=== PATIENT | male | born 1940 | race Caucasian/White ===

== ENCOUNTER → 2024-06-29 | Outpatient (CLI) | payer MEDICARE, BC, SELFPAY ==
[2024-06-29 17:21] LABS: Amphetamine/Methamp Scrn,U Negative (Negative); Barbiturate Screen,Urine Negative (Negative); Benzodiazepines Screen,Urine Negative (Negative); Benzoylecgonine Screen, Ur Negative (Negative); Fentanyl Screen,Urine Negative (Negative); Opiate Screen,Urine Positive (Negative); THC Screen,Urine Negative (Negative)
== END | disposition home or self-care (01) ==
LOC: SLDO 15:09
PROVIDERS: PCP Family Medicine; Referring Provider Family Medicine; Visit Provider Family Medicine
DX: Z79.891 Long term (current) use of opiate analgesic (principal)
CPT/HCPCS: 80307

== ENCOUNTER → 2024-09-26 | Outpatient (CLI) | payer MEDICARE, BC, SELFPAY ==
[2024-09-26 15:54] LABS: Collection Type, Urine Clean Catch; Squamous Epithelial Cell,Urine 0 /hpf (0-5); WBC,Urine 0 /hpf (0-5)
[2024-09-26 17:36] LABS: Bilirubin,Urine Negative (Negative); Blood,Urine Negative (Negative); Color,Urine Drk-Orange (Lt Yel-Yel); Glucose, Urine Negative (Negative); Ketones,Urine Negative (Negative); Leukocyte Esterase,Urine Positive (Negative); Nitrite,Urine Positive (Negative); PH,Urine 7.5 (5.0-7.0); Protein,Urine 2+ (Neg - Trace); RBC,Urine < 1 /hpf (0-3); Specific Gravity,Urine 1.021 (1.001-1.035); Urobilinogen,Urine Negative mg/dL (0.0-1.0)
[2024-09-26 17:53] LABS: Clarity,Urine Cloudy (Clear/Hazy)
== END | disposition home or self-care (01) ==
LOC: SLDO 15:39
PROVIDERS: PCP Physician Assistant; Referring Provider Physician Assistant; Visit Provider Physician Assistant
DX: N39.0 Urinary tract infection, site not specified (principal)
CPT/HCPCS: 81001; 87077; 87086; 87186

== ENCOUNTER 2025-03-05 10:49 | Emergency (ER) | payer MEDICARE, BC, SELFPAY ==
[2025-03-05 10:51] VITALS: PULSE 86; RESP 16; O2SAT 98; BMI 17.9
--- NOTE | 2025-03-05 11:07 | EKG_ITS ---
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
--- NOTE | 2025-03-05 11:08 | PD.EDADULT ---
ED General RME/HPI General Chief complaint: Weakness Stated complaint: WEAKNESS Time Seen by Provider: 03/05/25 11:07 Arrival date/time: 03/05/25 10:49 CC: Generalized weakness HPI patient had family circumstances that appointment stressed. The patient has been having intermittent diarrhea and constipation for the past 6 weeks. Patient states he has lost weight secondary to loss of appetite. Dr. Perez is his primary care doctor Dr. Oakley is his pre sales technical consultant. Patient states he is taking no medications at this time denies fever chills chest pain but is complaining of chronic back pain and bodyaches. Patient denies antibiotics in the last 3 months. Patient stopped taking all of his prescribed medications approximately 4 to 6 weeks ago Related Data Home Medications ?Medication ?Instructions ?Recorded ?Confirmed Calcium Carbonate/Vitamin D3 1 tab PO BID ##0 08/13/14 04/09/20 (Calcium + D 600 Mg Tablet) cholecalciferol (vitamin D3) 25 1,000 unit PO QDAY #0 tabs 08/13/14 04/09/20 mcg (1,000 unit) capsule (Vitamin D3) finasteride 1 mg tablet (Propecia) 5 mg PO QDAY #0 tabs 08/13/14 04/09/20 metoprolol succinate 100 mg 100 mg PO QDAY ##0 08/13/14 04/09/20 tablet,extended release 24 hr (Toprol XL) modafinil 200 mg tablet (Provigil) 300 mg PO QAM #0 tabs 08/13/14 04/09/20 tamsulosin 0.4 mg capsule (Flomax) 0.4 mg PO BID ##0 08/13/14 04/09/20 tramadol 50 mg tablet (Ultram) 50 mg PO BID #0 tabs 08/13/14 04/09/20 vitamin E 268 mg (400 unit) capsule 400 unit PO QDAY #0 caps 08/13/14 04/09/20 rivaroxaban 10 mg tablet (Xarelto) 20 mg PO QDAY #0 tabs 05/19/15 04/08/20 aripiprazole 2 mg tablet 4 mg PO QDAY 04/08/20 04/09/20 fluoxetine 20 mg capsule 20 mg PO QDAY 04/08/20 04/09/20 multivitamin 1 cap PO QAM 04/08/20 04/09/20 rosuvastatin 5 mg tablet (Crestor) 5 mg PO QDAY 04/08/20 04/09/20 olmesartan 40 1 tab PO QDAY 04/09/20 04/09/20 mg-hydrochlorothiazide 25 mg tablet Previous Rx's ?Medication ?Instructions ?Recorded amoxicillin 875 mg-potassium 1 tab PO BID #14 tabs 05/31/23 clavulanate 125 mg tablet bisacodyl 10 mg rectal suppository 10 mg IA QDAY PRN constipation #3 03/06/25 (Dulcolax (bisacodyl)) ea polyethylene glycol 3350 17 gram 17 g PO QDAY #14 ea 03/06/25 oral powder packet (Miralax) cephalexin 500 mg capsule 500 mg PO Q8H #28 caps 03/10/25 Allergies Allergy/AdvReac Type Severity Reaction Status Date / Time No Known Allergies Allergy Verified 05/31/23 18:20 Review of Systems Review of Systems Narrative Review of Systems: GEN: No fever, no chills, no weight loss EYES: No discharge, no visual changes, no pain HEENT: No ear pain, no congestion, no sore throat PULM: No shortness of breath, no cough, no congestion CV: No chest pain, no dyspnea on exertion, no palpitations GI: No nausea, no vomiting, no diarrhea, no pain, no constipation : No frequency, no urgency, no dysuria MUSC/SKEL: No joint pain, no back pain SKIN: No rash PSYCH: No hallucinations, no depression HEME/LYMPH: No easy bleeding or bruising tendencies NEURO: + weakness, no headache Past Medical History Past Medical History NEUROLOGIC: Negative Neurological Disorders CARDIAC: Positive Cardiac Disorders, Atrial Fibrillation, Hypercholesterolemia and Hypertension; Negative Congestive Heart Failure RESPIRATORY: Positive Chronic Obstructive Pulmonary Disease (COPD) GASTROINTESTINAL: Negative Gastrointestinal Disorders or Hepatitis GENITOURINARY: Positive Benign Prostatic Hyperplasia; Negative Renal Disease MUSCULOSKELETAL: Positive Arthritis ENDOCRINE: Negative Diabetes Mellitus Type 1, Diabetes Mellitus Type 2 or Hypothyroidism HEMATOLOGIC: Negative Blood Disorders PSYCHO/SOCIAL: Positive Depression, Anxiety and Post Traumatic Stress Disorder OTHER HISTORY: Positive Measles; Negative Blood Transfusions, Anesthesia Reactions, Chicken Pox, Mumps or Cancer Social History SMOKING STATUS: Never smoker ED Exam Narrative Physical exam: [General: Thin, borderline emaciated not in any acute distress Head normocephalic HEENT: Eyes pupils are PERRLA EOMs are intact mouth pink moist membranes uvula is midline swallow symmetrical phonation is normal. All of the substance of HEENT are within acceptable limits Neck is supple nontender no JVD. Chest equal chest rise nontender to palpation Respiratory: Clear to auscultation no wheezes crackles or rubs CV: Rate rhythm is regular no murmurs rubs or clicks Abdomen is flat, soft nontender no masses positive bowel sounds all 4 quadrants Back: No CVA tenderness no spinous process tenderness from cervical spine thoracic and lumbar spine Skin: Intact no petechiae rash induration ulceration or crepitus Extremities: Moving all extremity against resistance cap refill less than 2 seconds neurosensory intact. No lower extremity edema. Neuro: Awake alert oriented x3 Glascow coma 15 no focal deficits] Course Course Course Narrative: 1600 after 1 L fluid and 1 Percocet the patient states he is feeling much better laboratory results are wholly unremarkable other than a urine indicating a urinary tract infection. At this time the patient will be given antibiotics and discharged home. Patient states he is unable to go home because he is by himself. Patient is case presented to Dr. Haley resident for Dr. Garrido attending, who declines admission, patient is then to be held in the emergency room all night we will do physical therapy assessment and social work professor will be reengaged to determine if he is qualifying for SNF placement. Quality Measures none Orders Category Date Time Status Consult Valve Machine Operator NOW Care 03/05/25 18:23 Completed EKG (ED ONLY) *Do not use* NOW Care 03/05/25 11:07 Completed Insert IV NOW Care 03/05/25 11:09 Completed Saline [Insert IV] NOW Care 03/05/25 11:07 Completed Referral Physical Therapy Stat Cons 03/05/25 18:23 Active Referral Physical Therapy Stat Cons 03/06/25 09:36 Active Diet Regular Diet 03/06/25 Breakfast Active EKG (ED Only) Stat Exams 03/05/25 11:07 Draft B-Type Natriuretic Peptide Stat Lab 03/05/25 11:05 Completed CBC Stat Lab 03/05/25 11:05 Completed Comprehensive Metabolic Panel Stat Lab 03/05/25 11:05 Completed Drug Screen,Urine Stat Lab 03/05/25 14:35 Completed LDH (Lactate Dehydrogenase) Stat Lab 03/05/25 11:05 Completed Magnesium Stat Lab 03/05/25 11:05 Completed Partial Thromboplastin Time Stat Lab 03/05/25 11:05 Completed Prothrombin Time with INR Stat Lab 03/05/25 11:05 Completed Troponin I Stat Lab 03/05/25 11:05 Completed Urinalysis, C/S if Indicated Stat Lab 03/05/25 14:35 Completed Urine Culture Stat Lab 03/05/25 14:35 Completed DiphenhydrAMINE [Benadryl] Med 03/05/25 20:25 Discontinued 25 mg PO X1 ONE Ringers Lactated 1000 ml [Lactated Ringers] 1,000 ml Med 03/05/25 11:08 Discontinued IV 999 mls/hr Sodium Chloride 0.9% 1000 ml [Ns] 1,000 ml Med 03/05/25 14:09 Discontinued IV 100 mls/hr cefTRIAXone/D5w 1gm IV premix [Rocephin/D5w 1gm IV Med 03/05/25 16:08 Discontinued premix] 1 gm in 50 ml IV X1 fentaNYL INJ [Sublimaze Inj] Med 03/06/25 09:37 Discontinued 25 mcg IVP X1 ONE hydrOXYzine HCL [Atarax] Med 03/06/25 10:30 Discontinued 10 mg PO X1 ONE oxyCODONE/APAP 5/325 [Percocet 5/325] Med 03/05/25 12:25 Discontinued 1 tab PO X1 ONE oxyCODONE/APAP 5/325 [Percocet 5/325] Med 03/05/25 16:34 Discontinued 1 tab PO X1 ONE oxyCODONE/APAP 5/325 [Percocet 5/325] Med 03/05/25 23:25 Discontinued 1 tab PO X1 ONE oxyCODONE/APAP 5/325 [Percocet 5/325] Med 03/06/25 06:20 Discontinued 1 tab PO X1 ONE Vital Signs Vital signs: Vital Signs Temperature 99.4 F 03/05/25 11:09 Pulse Rate 102 H 03/05/25 11:09 Respiratory Rate 18 03/05/25 11:09 Blood Pressure 144/96 H 03/05/25 11:09 Pulse Oximetry (%) 98 03/05/25 11:09 Oxygen Delivery Method Room Air 03/05/25 11:09 Discharge Plan Plan Patient Disposition: HOME (Self Care) Patient condition on transfer: Stable Prescriptions/Referrals Prescriptions/Med Rec: New polyethylene glycol 3350 [Miralax] 17 gram powder in packet 17 g PO QDAY Qty: 14 0RF bisacodyl [Dulcolax (bisacodyl)] 10 mg suppository 10 mg IA QDAY PRN (Reason: constipation) Qty: 3 0RF cephalexin 500 mg capsule 500 mg PO Q8H Qty: 28 0RF No Action metoprolol succinate [Toprol XL] 100 MG tablet extended release 24 hr 100 mg PO QDAY Qty: 0 tramadol [Ultram] 50 MG tablet 50 mg PO BID Qty: 0 Patient Comments: FOR PAIN, NOT TO EXCEED 8 TABS IN 24 HRS modafinil [Provigil] 200 MG tablet 300 mg PO QAM Qty: 0 tamsulosin [Flomax] 0.4 MG capsule,extended release 24hr 0.4 mg PO BID Qty: 0 vitamin E 400 UNIT capsule 400 unit PO QDAY Qty: 0 finasteride [Propecia] 1 MG tablet 5 mg PO QDAY Qty: 0 cholecalciferol (vitamin D3) [Vitamin D3] 1,000 UNIT tablet 1,000 unit PO QDAY Qty: 0 Calcium Carbonate/Vitamin D3 (Calcium + D 600 Mg Tablet) 1 EACH tablet 1 tab PO BID Qty: 0 Xarelto 10 MG tablet 20 mg PO QDAY Qty: 0 multivitamin Capsule 1 cap PO QAM fluoxetine 20 mg Capsule 20 mg PO QDAY rosuvastatin [Crestor] 5 mg Tablet 5 mg PO QDAY aripiprazole 2 mg Tablet 4 mg PO QDAY olmesartan-hydrochlorothiazide 40-25 mg Tablet 1 tab PO QDAY amoxicillin-pot clavulanate 875-125 mg tablet 1 tab PO BID Qty: 14 0RF Referrals: No Primary/Family,Physician [Primary Care Provider] - In 1 week Problem List Clinical Impression: Urinary tract infection Patient/Caregiver Discharge Instructions Education Materials: ED Bladder Infection, Male (Adult) Additional Instructions: Take the medication as prescribed follow-up with the primary care doctor if there is worsening of symptoms return the emergency room medially for further evaluation. Today shared with me that you are depressed and anxious at home. Please discuss this with your primary care doctor. We also discussed that you have difficulty sleeping and this is one of the reasons why you take the hydrocodone at home. I highly recommend that you discuss your medication regimen with your primary care doctor as opiate medications have significant side effects, including respiratory depression, constipation severe to cause bowel obstruction, perforation and many others. Print Language: [place] Stand Alone Forms: Fabi Award Info., Work/School Release LEYLA/FAYE Supervising Physician NICKY Supervising Physician: Papo Wong ENP MDM Clinical Information Provided by: patient and EMS Medical Records reviewed [facility] and EMS Meds/Rx considered, not ordered None Labs/Rad/Tests considered, not ordered None Chronic Illness/Social Conditions Explain: Hypertension A-fib. Medication noncompliance for the last 4 to 6 weeks. Labs Lab(s) Interpretation(s): EKG performed at 1143 shows a ventricular rate of 89 QRS of 8 9 QTc of 393 this is A-fib. When compared to an old EKG of 1223 shows no significant changes. CBC shows leukocytosis of 13.7 H&H of 11.0 and 34.3 respectively platelets at 500. Coags within acceptable limits CMP shows no significant electrolyte imbalances no renal impairment transaminitis or T. bili elevation. BNP at 118 troponin is undetectable. Medication Administration(s) Medication Administration History Discontinued Medications Diphenhydramine HCl (Diphenhydramine 25 Mg Capsule) 25 mg PO X1 ONE Stop: 03/05/25 20:26 Last Admin: 03/05/25 20:39 Dose: 25 mg Documented By: WILI Fentanyl Citrate (Fentanyl Cit Inj 50 Mcg/Ml Amp 2ml) 25 mcg IVP X1 ONE Stop: 03/06/25 09:38 Last Admin: 03/06/25 09:54 Dose: 25 mcg Documented By: DO Hydroxyzine HCl (Hydroxyzine Hcl 10 Mg Tablet) 10 mg PO X1 ONE Stop: 03/06/25 10:31 Last Admin: 03/06/25 11:48 Dose: 10 mg Documented By: DO Lactated Ringer's (Lactated Ringers) 1,000 mls @ 999 mls/hr IV .Q1H1M ONE Stop: 03/05/25 12:08 Last Infusion: 03/05/25 12:00 Dose: Infused Documented By: Admin: 03/05/25 11:12 Dose: 999 mls/hr Documented By: JAILENE Sodium Chloride (Ns) 1,000 mls @ 100 mls/hr IV .Q10H TRIXIE Stop: 04/04/25 14:08 Last Admin: 03/06/25 10:26 Dose: Not Given Documented By: Non-Admin Reason: pt being dc home Infusion: 03/06/25 10:26 Dose: 0 mls/hr Documented By: Admin: 03/06/25 01:05 Dose: 100 mls/hr Documented By: Infusion: 03/06/25 01:03 Dose: Infused Documented By: Admin: 03/05/25 14:41 Dose: 100 mls/hr Documented By: PAT Ceftriaxone Sodium/Dextrose (Rocephin/D5w 1gm Iv Premix) 1 gm in 50 mls @ 100 mls/hr IV X1 ONE Stop: 03/05/25 16:37 Last Infusion: 03/05/25 17:00 Dose: Infused Documented By: Admin: 03/05/25 16:28 Dose: 100 mls/hr Documented By: JAILENE Oxycodone/Acetaminophen (Oxycodone/Apap 5/325 Tablet) 1 tab PO X1 ONE Stop: 03/05/25 12:26 Last Admin: 03/05/25 12:32 Dose: 1 tab Documented By: PAT Oxycodone/Acetaminophen (Oxycodone/Apap 5/325 Tablet) 1 tab PO X1 ONE Stop: 03/05/25 16:35 Last Admin: 03/05/25 16:40 Dose: 1 tab Documented By: PAT Oxycodone/Acetaminophen (Oxycodone/Apap 5/325 Tablet) 1 tab PO X1 ONE Stop: 03/05/25 23:26 Last Admin: 03/05/25 23:44 Dose: 1 tab Documented By: WILI Oxycodone/Acetaminophen (Oxycodone/Apap 5/325 Tablet) 1 tab PO X1 ONE Stop: 03/06/25 06:21 Last Admin: 03/06/25 06:25 Dose: 1 tab Documented By: WILI
[2025-03-05 11:09] VITALS: BP 144/96; PULSE 102; RESP 18; TEMP 37.4; O2SAT 98
[2025-03-05] MEDS: RINGERS LACTATED 1000 ML 1,000 ML 999 ML IV (11:12)
[2025-03-05 12:37] LABS: Basophils # (Auto) 0.0 Thou/mm3 (0.0-0.2); Basophils % (Auto) 0 % (0-2.5); Eosinophils # (Auto) 0.1 Thou/mm3 (0.0-0.5); Eosinophils % (Auto) 1 % (0-10); Hematocrit 34.3 % (41.0-53.0); Hemoglobin 11.0 g/dL (13.5-16.0); Immature Granulocytes Auto 0.06 Thou/mm3 (0.00-0.00); Lymphocytes # (Auto) 0.9 Thou/mm3 (1.0-4.8); Lymphocytes % (Auto) 7 % (10-50); Mean Corpuscular HGB Conc 32.1 g/dl (31.0-37.0); Mean Corpuscular Hemoglobin 28.5 pg (25.0-35.0); Mean Corpuscular Volume 89 fL (80-100); Monocytes # (Auto) 0.9 Thou/mm3 (0.0-0.8); Monocytes % (Auto) 6 % (0-12); Neutrophils # (Auto) 11.8 Thou/mm3 (1.8-7.7); Neutrophils % (Auto) 86 % (37-80); Nucleated Red Blood Cell # 0.00 Thou/mm3 (0.00-0.00); Nucleated Red Blood Cell % 0 /100 WBC (0); Platelet Count 500 Thou/mm3 (140-440); RDW Standard Deviation 45.1 fL (35.1-43.9); Red Blood Count 3.86 Miln/mm3 (4.50-5.90); White Blood Count 13.7 Thou/mm3 (3.8-10.6)
[2025-03-05 12:53] LABS: INR 1.1 (0.9-1.3); Partial Thromboplastin Time 30.9 Seconds (22.0-36.0); Prothrombin Time 11.9 Seconds (9.0-12.2)
[2025-03-05 13:02] LABS: Alanine Aminotransferase 18 U/L (10-49); Albumin, Serum 3.6 gm/dL (3.4-4.8); Albumin/Globulin Ratio 1.1 (1.2-2.2); Alkaline Phosphatase 74 U/L (46-116); Anion Gap 9 (7-16); Aspartate Amino Transferase 16 U/L (0-34); BUN/Creatinine Ratio 26 Ratio (12-20); Bilirubin,Total 0.4 mg/dL (0.3-1.2); Blood Urea Nitrogen 21 mg/dL (9-23); Calcium 9.1 mg/dL (8.3-10.6); Calcium (Corrected) 9.4 mg/dL (8.5-10.1); Carbon Dioxide 28.8 mMol/L (20.0-31.0); Chloride 101 mMol/L (98-107); Creatinine (Component) 0.8 mg/dL (0.6-1.3); Estimated Creatinine Clearance 52.0 mL/min (>60); Globulin 3.2 gm/dL (2.3-3.5); Glucose 96 mg/dL (74-106); LDH (Lactate Dehydrogenase) 122 U/L (120-246); Magnesium 1.8 mg/dL (1.6-2.6); Osmolality,Calculated 280 (275-295); Potassium 4.0 mMol/L (3.4-5.1); Sodium 139 mMol/L (136-145); Total Protein 6.8 gm/dL (5.7-8.2); Troponin I < 0.002 ng/mL (0.0-0.045); eGFR > 60 See Note
[2025-03-05 13:03] LABS: B-Type Natriuretic Peptide 118 pg/mL (0-100)
[2025-03-05] MEDS: SODIUM CHLORIDE 0.9% 1000 ML 1,000 ML 100 ML IV (14:41)
[2025-03-05 14:55] LABS: Collection Type, Urine Clean Catch
[2025-03-05 15:08] LABS: Amphetamine/Methamp Scrn,U Negative (Negative); Barbiturate Screen,Urine Negative (Negative); Benzodiazepines Screen,Urine Negative (Negative); Benzoylecgonine Screen, Ur Negative (Negative); Fentanyl Screen,Urine Negative (Negative); Opiate Screen,Urine Positive (Negative); THC Screen,Urine Negative (Negative)
[2025-03-05 15:32] LABS: Bacteria,Urine 3+; Bilirubin,Urine Negative (Negative); Blood,Urine 2+ (Negative); Clarity,Urine Turbid (Clear/Hazy); Color,Urine Yellow (Lt Yel-Yel); Glucose, Urine Negative (Negative); Ketones,Urine Negative (Negative); Leukocyte Esterase,Urine Positive (Negative); Nitrite,Urine Positive (Negative); PH,Urine 6.0 (5.0-7.0); Protein,Urine 1+ (Neg - Trace); RBC,Urine 6 /hpf (0-3); Specific Gravity,Urine 1.013 (1.001-1.035); Squamous Epithelial Cell,Urine < 1 /hpf (0-5); Urobilinogen,Urine Negative mg/dL (0.0-1.0); WBC,Urine 449 /hpf (0-5)
[2025-03-05 15:36] LABS: Culture Indicated,Urine Yes
[2025-03-05 15:52] VITALS: BP 146/91; PULSE 94; RESP 18; TEMP 36.3; O2SAT 96
[2025-03-05] MEDS: cefTRIAXone/D5w 1gm IV premix 1 GM/50 ML BAG IV (16:28)
--- NOTE | 2025-03-05 16:43 | PC.SS ---
bedside nurse notified MERCHANDISING EXECUTION ASSOCIATE that patient does not feel safe returning home, MERCHANDISING EXECUTION ASSOCIATE met with patient at bedside, patient stated he would like to stay at [facility]. MERCHANDISING EXECUTION ASSOCIATE informed patient that insurance authorization is required, patient confirmed, MERCHANDISING EXECUTION ASSOCIATE notified bedside nurse and doctor of SNF referral. MERCHANDISING EXECUTION ASSOCIATE submitted SNF referral.
[2025-03-05 18:02] VITALS: BP 137/96; PULSE 88; RESP 17; TEMP 36.7; O2SAT 98
--- NOTE | 2025-03-05 18:25 | EVENTNT_ITS ---
Documentation for date of: 03/05/25 Event Note Event Note: Received call for admission from DENNIS Wong around 5:45PM. Patient is a 84 y.o male with PMHx significant for HTN, HLD, and self catherization daily follows with Dr. Mcdowell who presented to the ED with worsening weakness for the last month. Patient's associated symptoms include body aches and drinks Vanilla Ensures. Patient hasn't ate solid foods in a few months. Patient lives at home at [facility]. Patient requests to be placed in SNF, specifically [facility], which is where his and daughter currently reside. Patient denies any dysuria, chest pain, n/v, fevers. Labs only significant for leukocytosis of 13 and UA positive for UTI. At this time, primary internal medicine team would request patient be placed in SNF from the ER as patient doesn't meet any inpatient diagnoses at this time. Patient can continue with IV Abx, fluids, oral intake as tolerated, and continue with plans for placement to a SNF. Patient's care and plan discussed with my attending, Dr. Garrido. Rachelle Haley, PGY-3
[2025-03-05 19:29] VITALS: BP 144/105; PULSE 112; RESP 18; TEMP 37.2; O2SAT 99
[2025-03-05 21:40] VITALS: BP 141/91; PULSE 87; RESP 18; O2SAT 97
--- NOTE | 2025-03-05 23:08 | PD.EDADDENDU ---
Emergency Room Addendum Addendum Narrative: 2300: Care assumed from Papo Wong NP. Past medical, surgical, social and family history reviewed. Vitals and home medications reviewed. Results and treatment plan discussed. I will assume the care of the patient at this time and will follow the patient. Please refer to the emergency department record for history and examination from initial visit.
[2025-03-06] MEDS: SODIUM CHLORIDE 0.9% 1000 ML 1,000 ML 100 ML IV (01:05)
--- NOTE | 2025-03-06 03:20 | PC.NURSE ---
pt asleep in bed eyes closed unlabored chest rise and fall, stable vital signs
[2025-03-06 04:13] VITALS: BP 142/63; PULSE 94; RESP 15; O2SAT 98
--- NOTE | 2025-03-06 06:25 | PC.NURSE ---
dr cade ordered ct of pelvis. ct called to come come belt picker pt.
[2025-03-06 06:28] VITALS: BP 157/101; PULSE 99; RESP 18; O2SAT 98
--- NOTE | 2025-03-06 07:40 | PC.NURSE ---
PT ASLEEP ON GURNEY IN NO APPARENT DISTRESS. RESPIRATIONS EVEN AND UNLABORED. CALL LIGHT WITHIN REACH.
[2025-03-06 07:45] VITALS: BP 129/92; PULSE 89; RESP 18; O2SAT 96
[2025-03-06 08:00] VITALS: BP 129/92; PULSE 96; RESP 20; TEMP 36.8; O2SAT 96
--- NOTE | 2025-03-06 09:36 | EDNOTE_ITS ---
Emergency Room Addendum Addendum Narrative: Patient is an 84-year-old male is in the emergency department concerns that he is unable to care for himself. Prior provider evaluated patient. Medically cleared patient he does have a urinary tract infection. Antibiotics have been provided. Patient was evaluated by social work. Request that we obtain PT OT to see if he meets criteria for placement. He is able to care for all of his activities of daily living at home. Cooks his own meals, drives, ambulates w ithout a walker. PT evaluated patient, patient is able to ambulate without any assistance. Patient does not meet criteria for longterm facility. beef cattle farm worker had extensive conversation with the patient, the patient feels comfortable with being discharged home. He has been depressed since his daughter and his were placed in a longterm facility and he wanted to be placed O2 to be close to them. After speaking with the social services aide the patient feels better, and feels that he will be able to care for himself at home. Patient has a primary care doctor. He will follow-up in the next 1 to 2 days. Patient is hemodynamically stable nondistressed nontoxic appearing. Will send home with a course of antibiotics.
--- NOTE | 2025-03-06 09:40 | PC.NURSE ---
pt ambulated around nurses station without difficulty
[2025-03-06] MEDS: fentaNYL CIT INJ 50 mCg/ML AMP 2ML 25 MCG IVP (09:54)
--- NOTE | 2025-03-06 10:22 | PC.SS ---
SS follow up note; SS met with patient to discuss discharge options. Patient was assisted by Galina FELTON. Patient is able to ambulate on his own without any assistance or DME. Patient expressed to SS that he has been feeling alone and depressed since his life was admitted to [facility]. Patient reports he is able to perform all ADL's independently. Patient reports he also drives and is able to get his own groceries.SS informed patient he does not meet criteria to discharge to [facility]. Patient verbalized understanding and contacted his friend to provide transportation home. SS updated Dr. Abraham as well as patient's nurse, Cassandra. Patient express he feels lonely at home. SS encouraged patient to find hobbies and informed him that it will take time to adjust to his new life style, patient verbalized understanding.
[2025-03-06 10:51] VITALS: BP 146/92; PULSE 89; RESP 16; TEMP 37; O2SAT 96
[2025-03-06 12:25] VITALS: BP 150/75
== END 2025-03-06 12:25 | disposition home or self-care (01) ==
PROVIDERS: Registered Nurse General Practice; Emergency Provider Emergency Medicine
DX: N39.0 Urinary tract infection, site not specified (principal); K59.00 Constipation, unspecified; R19.7 Diarrhea, unspecified; F32.A Depression, unspecified
CPT/HCPCS: 36415; 80053; 80307; 81001; 83615; 83735; 83880; 84484; 85025; 85610; 85730; 87077; 87086; 87186; 93005; 96361; 96365; 96375; 99284; J0696; J3010; J7030; J7120; A9270